=== PATIENT | female | born 1970 | race Caucasian/White ===

== ENCOUNTER 2021-04-17 01:59 | Emergency (ER) | payer OTHER ==
[~2021-04-17] VITALS: Ht 162.6 cm; Wt 108.9 kg
[2021-04-17 02:57] LABS: BASOPHILS ABSOLUTE AUTO 0.06 K/mm3 (0.00-0.23); BASOPHILS PERCENT AUTO 0 % (0-2); EOSINOPHILS ABSOLUTE AUTO 0.05 K/mm3 (0.00-0.68); EOSINOPHILS PERCENT AUTO 0 % (0-6); Hematocrit 46.8 % (33.0-51.0); Hemoglobin 15.6 g/dL (11.5-16.0); IMMATURE GRAN ABSOLUTE AUTO 0.08 K/mm3 (0.00-0.10); IMMATURE GRAN PERCENT AUTO 0 % (0-1); LYMPHOCYTES ABSOLUTE AUTO 2.03 K/mm3 (0.84-5.20); LYMPHOCYTES PERCENT AUTO 11 % (21-46); MONOCYTES ABSOLUTE AUTO 1.71 K/mm3 (0.16-1.47); MONOCYTES PERCENT AUTO 9 % (4-13); Mean Corpuscular HGB 28.2 pg (26.0-34.0); Mean Corpuscular HGB Conc 33.3 g/dL (31.5-36.5); Mean Corpuscular Volume 85 fL (80-100); Mean Platelet Volume 10.5 fL (9.1-12.4); NEUTROPHILS ABSOLUTE AUTO 15.04 K/mm3 (1.96-9.15); NEUTROPHILS PERCENT AUTO 79 % (41-73); Platelet Count 292 K/mm3 (150-400); RDW Coefficient Variation 13.8 % (11.7-14.2); Red Blood Cell Count 5.53 M/mm3 (3.80-5.20); White Blood Cell Count 18.97 K/mm3 (4.00-11.30)
[2021-04-17 03:18] LABS: Alanine Aminotransfer (ALT/SGP 29 U/L (12-78); Albumin, Blood 3.7 g/dL (3.4-5.0); Alk Phos 140 U/L (50-136); Anion Gap 9 mmol/L (6-16); Aspartate Aminotrans (AST/SGOT 18 U/L (12-37); Bilirubin, Total 2.4 mg/dL (0.1-1.0); Blood Urea Nitrogen 13 mg/dL (8-24); Bun/Creatinine Ratio 18.2 (12.0-20.0); CO2, Blood 27 mmol/L (21-32); Calcium, Blood 9.3 mg/dL (8.5-10.1); Chloride, Blood 102 mmol/L (98-108); Creatinine, Blood 0.71 mg/dL (0.40-1.00); Globulin, Blood 3.8 g/dL (2.2-4.0); Glomerular Filtration Rate >60 (60-); Glucose, Blood 133 mg/dL (70-99); Potassium, Blood 3.7 mmol/L (3.5-5.5); Sodium, Blood 138 mmol/L (136-145); Total Protein, Blood 7.5 g/dL (6.4-8.2); Troponin I 0.017 ng/mL (0.000-0.040)
[2021-04-17] MEDS ORDERED: AMLO10 PO (04:00)
[2021-04-17] MEDS ORDERED: Metrogel 1% 6060 GM (04:00)
[2021-04-17] MEDS ORDERED: Carvedilol12.5 MG (04:00)
[2021-04-17] MEDS ORDERED: ATOR80 PO (04:01)
[2021-04-17] MEDS ORDERED: EZET10 PO (04:01)
[2021-04-17] MEDS ORDERED: ISODIN20 PO (04:01)
[2021-04-17] MEDS ORDERED: Aspir 8181 MG PO (04:02)
[2021-04-17] MEDS ORDERED: NITROGLYCERIN0.4 M2 SL (04:02)
[2021-04-17 04:49] LABS: Source, Urine Clean Catch
[2021-04-17 04:54] LABS: Bilirubin, Urine Neg (Neg); Blood, Urine 4+ (Neg); Glucose Qualitative, Urine Neg (Neg); Ketones, Urine 1+ (Neg); Leukocyte Esterase, Urine 3+ (Neg); Nitrite, Urine Pos (Neg); Protein, Urine 2+ (Neg); Urobilinogen, Urine NORM (Normal); pH, Urine 6.5 (5.0-8.0)
[2021-04-17 05:05] LABS: Appearance, Urine Cloudy (Clear); Bacteria Many /hpf; Color, Urine Yellow (P-Yellow); Red Blood Cells, Urine 0-2 /hpf (0-2); Squamous Epithelial Cells Not Seen /hpf (Few); Transitional Epithelial Cells Few /hpf (0-Rare); White Blood Cells, Urine TNTC /hpf (0-5)
== END 2021-04-17 07:16 | disposition short-term general hospital (02) ==
LOC: ER 01:59
PROVIDERS: Emergency Medicine
DX: A41.9 Sepsis, unspecified organism (principal); N13.2 Hydronephrosis with renal and ureteral calculous obstruction; K80.20 Calculus of gallbladder without cholecystitis without obstruction; R68.84 Jaw pain; Z20.822 Contact with and (suspected) exposure to COVID-19; Z87.442 Personal history of urinary calculi
CPT/HCPCS: 36415; 71045; 76705; 76857; 80053; 81001; 84484; 85025; 87077; 87086; 87186; 93005; 93010; 96374; 96375; 99285-25; A9270; J0696; J1885; J2405; J7030

== ENCOUNTER 2021-04-17 16:56 | Inpatient (IN) | payer OTHER ==
[~2021-04-17] VITALS: Ht 162.6 cm; Wt 106.6 kg
[~2021-04-17 16:56] MED LIST: AMLO10 PO; ATOR80 PO; Aspir 8181 MG PO; Carvedilol12.5 MG; EZET10 PO; ISODIN20 PO; Metrogel 1% 6060 GM; NITROGLYCERIN0.4 M2 SL
[2021-04-17 17:46] LABS: Source, Urine Foley catheter
[2021-04-17 17:50] LABS: Appearance, Urine Hazy (Clear); Bilirubin, Urine Neg (Neg); Blood, Urine 5+ (Neg); Color, Urine Yellow (P-Yellow); Glucose Qualitative, Urine Neg (Neg); Ketones, Urine 2+ (Neg); Leukocyte Esterase, Urine 3+ (Neg); Nitrite, Urine Neg (Neg); Protein, Urine 2+ (Neg); Urobilinogen, Urine NORM (Normal)
[2021-04-17 17:55] LABS: BASOPHILS ABSOLUTE AUTO 0.05 K/mm3 (0.00-0.23); BASOPHILS PERCENT AUTO 0 % (0-2); EOSINOPHILS PERCENT AUTO 0 % (0-6); Hematocrit 41.9 % (33.0-51.0); Hemoglobin 14.4 g/dL (11.5-16.0); IMMATURE GRAN ABSOLUTE AUTO 0.08 K/mm3 (0.00-0.10); IMMATURE GRAN PERCENT AUTO 0 % (0-1); LYMPHOCYTES ABSOLUTE AUTO 0.61 K/mm3 (0.84-5.20); LYMPHOCYTES PERCENT AUTO 3 % (21-46); MONOCYTES ABSOLUTE AUTO 0.51 K/mm3 (0.16-1.47); MONOCYTES PERCENT AUTO 2 % (4-13); Mean Corpuscular HGB 28.9 pg (26.0-34.0); Mean Corpuscular HGB Conc 34.4 g/dL (31.5-36.5); Mean Corpuscular Volume 84 fL (80-100); Mean Platelet Volume 10.5 fL (9.1-12.4); NEUTROPHILS ABSOLUTE AUTO 22.22 K/mm3 (1.96-9.15); NEUTROPHILS PERCENT AUTO 95 % (41-73); Platelet Count 265 K/mm3 (150-400); RDW Coefficient Variation 14.3 % (11.7-14.2); RDW Standard Deviation 43.5 fL (35.1-46.3); Red Blood Cell Count 4.98 M/mm3 (3.80-5.20); White Blood Cell Count 23.47 K/mm3 (4.00-11.30)
[2021-04-17 18:00] LABS: Amorphous Light (0-Heavy); Bacteria Few /hpf; Mucus Mod (0-Heavy); Red Blood Cells, Urine 50-100 /hpf (0-2); Squamous Epithelial Cells Few /hpf (Few)
[2021-04-17 18:09] LABS: Alanine Aminotransfer (ALT/SGP 20 U/L (12-78); Albumin, Blood 3.1 g/dL (3.4-5.0); Albumin/Globulin Ratio 0.8 (0.8-1.8); Alk Phos 115 U/L (50-136); Anion Gap 10 mmol/L (6-16); Aspartate Aminotrans (AST/SGOT 16 U/L (12-37); Bilirubin, Total 1.5 mg/dL (0.1-1.0); Blood Urea Nitrogen 15 mg/dL (8-24); Bun/Creatinine Ratio 18.8 (12.0-20.0); CO2, Blood 24 mmol/L (21-32); Calcium, Blood 8.5 mg/dL (8.5-10.1); Chloride, Blood 103 mmol/L (98-108); Globulin, Blood 3.7 g/dL (2.2-4.0); Glomerular Filtration Rate >60 (60-); Glucose, Blood 162 mg/dL (70-99); Potassium, Blood 3.3 mmol/L (3.5-5.5); Sodium, Blood 137 mmol/L (136-145); Total Protein, Blood 6.8 g/dL (6.4-8.2)
[2021-04-18 04:39] LABS: Hematocrit 40.5 % (33.0-51.0); Hemoglobin 13.2 g/dL (11.5-16.0); Mean Corpuscular HGB 28.5 pg (26.0-34.0); Mean Corpuscular HGB Conc 32.6 g/dL (31.5-36.5); Mean Corpuscular Volume 88 fL (80-100); Platelet Count 254 K/mm3 (150-400); RDW Coefficient Variation 14.4 % (11.7-14.2); RDW Standard Deviation 46.2 fL (35.1-46.3); Red Blood Cell Count 4.63 M/mm3 (3.80-5.20); White Blood Cell Count 21.82 K/mm3 (4.00-11.30)
[2021-04-18 05:14] LABS: Anion Gap 9 mmol/L (6-16); Blood Urea Nitrogen 23 mg/dL (8-24); Bun/Creatinine Ratio 33.1 (12.0-20.0); CO2, Blood 26 mmol/L (21-32); Calcium, Blood 8.8 mg/dL (8.5-10.1); Chloride, Blood 106 mmol/L (98-108); Glomerular Filtration Rate >60 (60-); Glucose, Blood 126 mg/dL (70-99); Magnesium, Blood 2.7 mg/dL (1.6-2.4); Potassium, Blood 4.2 mmol/L (3.5-5.5); Sodium, Blood 141 mmol/L (136-145)
--- NOTE | 2021-04-18 05:44 | NUR ---
SHIFT SUMMARY: KYLE IS A&OX4. VSS, NO ACUTE EVENTS OVERNIGHT. SINGH DRAINING CLOUDY, ANSHU URINE. SHE DENIES ANY PAIN, USES THE CALL LIGHT APPROPRIATELY, AND IS INDEPENDENT IN THE ROOM. IV TO LEFT FOREARM PATENT, FLUIDS INFUSING. SHE IS TOLERATING PO INTAKE WELL, ABLE TO TURN AND REPOSITION HERSELF INDEPENDENTLY. SHE IS LYING IN BED WITH THE CALL LIGHT IN REACH. WILL REPORT TO DAY SHIFT RN.
--- NOTE | 2021-04-18 17:48 | NUR ---
SUMMARY PT IS A&O X4, PAIN FREE AND PLEASANT. SHE IS INDEPENDENT IN THE ROOM. PT IS TOLERATING PO INTAKE. SINGH CATHETER REMOVED @1715, 700 ML'S OF LIGHT ANSHU URINE NOTED IN BAG. PT'S STENT REMAINS IN PLACE. PT EDUCATED AND ADVISED TO BE CAREFUL WITH [facility] SO SHE DOES NOT ACCIDENTLY PULL STENT. PT STATES UNDERSTANDING. NO ACUTE CHANGES NOTED THROUGH THE DAY. PT IS RESTING QUIETLY, CALL LIGHT IN REACH.
--- NOTE | 2021-04-19 07:55 | NUR ---
summary no stones strained tonight. no c/o pain. tolerataing po fluids. hopin gfor possible dischaarge today.
[2021-04-19] MEDS ORDERED: CEFD300 PO (10:23)
--- NOTE | 2021-04-19 10:38 | NUR ---
DISCHARGE: DISCHARGE INSTUCTIONS GIVEN TO PATIENT AT THIS TIME. PATIENT VERBALIZED UNDERSTANDING. IV REMOVED WITH NO ISSUES. [facility] WITH CONFORMATION OF RECIEPT RECIEVED. NO SIGNS OR SYMPTOMS ACUTE DISTRESS NOTED. PATIENT LEFT VIA PRIVATE VEHICLE.
--- NOTE | 2021-04-19 12:34 | NUR ---
Per chart review with Dr. Sharma, patient appropriate for discharge. Patient to discharge home, denies barriers to discharge and feels safe to return home. No needs anticipated, patient to follow-up with Urology at [facility] in [place] for definitive stone removal. Hospital follow up scheduled with Dr. Smith on , April 22, 2021 at 10:40 AM in office. Patient agreeable with time and date. Patient states she has the follow with [facility] scheduled for 05/13/2021.
== END 2021-04-19 10:45 | disposition home or self-care (01) | DRG 872 ==
LOC: ER 16:56 → SURS 19:31
PROVIDERS: Nurse Practitioner Acute Care; Student in an Organized Health Care Education/Training Program; ADMIT Internal Medicine
DX: A41.51 Sepsis due to Escherichia coli [E. coli] (principal); N13.6 Pyonephrosis; R07.9 Chest pain, unspecified; N20.0 Calculus of kidney; I10 Essential (primary) hypertension; E78.5 Hyperlipidemia, unspecified; I25.10 Atherosclerotic heart disease of native coronary artery without angina pectoris; Z96.0 Presence of urogenital implants; I25.2 Old myocardial infarction; K76.0 Fatty (change of) liver, not elsewhere classified; Z95.5 Presence of coronary angioplasty implant and graft; Z79.899 Other long term (current) drug therapy; Z79.82 Long term (current) use of aspirin; Z28.21 Immunization not carried out because of patient refusal
CPT/HCPCS: 36415; 80048; 80053; 81001; 83605; 83735; 85025; 85027; 87040; 87086; 99285; A9270; J0696; J1650; J7030

== ENCOUNTER → 2021-04-22 | Outpatient (CLI) | payer OTHER ==
[~2021-04-22] MED LIST changes: +CEFD300 PO
== END | disposition home or self-care (01) ==
LOC: LAB 14:25 → LAB SHORT 14:25
DX: N39.0 Urinary tract infection, site not specified (principal)
CPT/HCPCS: 87077; 87086; 87186

== ENCOUNTER 2022-11-13 16:22 | Emergency (ER) | payer MEDICARE, OTHER ==
[~2022-11-13] VITALS: Ht 162.6 cm; Wt 109.8 kg
[2022-11-13 16:36] VITALS: BP 166/115
[2022-11-13 17:25] LABS: Source, Urine Clean Catch
[2022-11-13 17:29] LABS: Appearance, Urine Hazy (Clear); Bilirubin, Urine Neg (Neg); Blood, Urine 1+ (Neg); Color, Urine Yellow (P-Yellow); Glucose Qualitative, Urine 4+ (Neg); Ketones, Urine Neg (Neg); Leukocyte Esterase, Urine 2+ (Neg); Nitrite, Urine Neg (Neg); Protein, Urine Neg (Neg); Specific Gravity, Urine 1.025 (1.003-1.022); Urobilinogen, Urine NORM (Normal)
[2022-11-13 17:32] LABS: BASOPHILS ABSOLUTE AUTO 0.03 K/mm3 (0.00-0.23); BASOPHILS PERCENT AUTO 0 % (0-2); EOSINOPHILS ABSOLUTE AUTO 0.28 K/mm3 (0.00-0.68); EOSINOPHILS PERCENT AUTO 3 % (0-6); Hematocrit 46.2 % (33.0-51.0); Hemoglobin 15.2 g/dL (11.5-16.0); IMMATURE GRAN ABSOLUTE AUTO 0.01 K/mm3 (0.00-0.10); IMMATURE GRAN PERCENT AUTO 0 % (0-1); LYMPHOCYTES ABSOLUTE AUTO 2.52 K/mm3 (0.84-5.20); LYMPHOCYTES PERCENT AUTO 31 % (21-46); MONOCYTES ABSOLUTE AUTO 0.56 K/mm3 (0.16-1.47); MONOCYTES PERCENT AUTO 7 % (4-13); Mean Corpuscular HGB 28.7 pg (26.0-34.0); Mean Corpuscular HGB Conc 32.9 g/dL (31.5-36.5); Mean Corpuscular Volume 87 fL (80-100); Mean Platelet Volume 10.8 fL (9.1-12.4); NEUTROPHILS ABSOLUTE AUTO 4.87 K/mm3 (1.96-9.15); NEUTROPHILS PERCENT AUTO 59 % (41-73); Platelet Count 257 K/mm3 (150-400); RDW Coefficient Variation 14.1 % (11.7-14.2); RDW Standard Deviation 45.1 fL (35.1-46.3); Red Blood Cell Count 5.29 M/mm3 (3.80-5.20); White Blood Cell Count 8.27 K/mm3 (4.00-11.30)
[2022-11-13 17:40] LABS: Bacteria Mod /hpf; Red Blood Cells, Urine 0-2 /hpf (0-2); Squamous Epithelial Cells Mod /hpf (Few)
[2022-11-13 17:49] LABS: Albumin, Blood 3.9 g/dL (3.4-5.0); Albumin/Globulin Ratio 1.1 (0.8-1.8); Bilirubin, Total 1.1 mg/dL (0.1-1.0); Calcium, Blood 9.6 mg/dL (8.5-10.1); Creatinine, Blood 0.73 mg/dL (0.40-1.00); Globulin, Blood 3.5 g/dL (2.2-4.0); Potassium, Blood 3.9 mmol/L (3.5-5.5); Total Protein, Blood 7.4 g/dL (6.4-8.2)
== END 2022-11-13 20:57 | disposition home or self-care (01) ==
LOC: ER 16:22
PROVIDERS: Student in an Organized Health Care Education/Training Program
DX: R10.9 Unspecified abdominal pain (principal); Z79.899 Other long term (current) drug therapy; Z79.82 Long term (current) use of aspirin; I25.2 Old myocardial infarction
CPT/HCPCS: 74177; 80053; 81001; 83690; 85025; 87086; 93005; 93010; 99284-25; Q9967

== ENCOUNTER 2023-05-19 14:46 | Inpatient (IN) | payer MEDICARE, OTHER ==
[~2023-05-19] VITALS: Ht 162.6 cm; Wt 91.5 kg
[~2023-05-19 14:46] MED LIST changes: -AMLO10 PO; -ATOR80 PO; +Amlodipine Bes2.5 MG PO; +CARV6.25 PO; -Carvedilol12.5 MG; +LIPITOR80 MG PO
[2023-05-19 15:24] LABS: BASOPHILS ABSOLUTE AUTO 0.04 K/mm3 (0.00-0.23); BASOPHILS PERCENT AUTO 0 % (0-2); EOSINOPHILS PERCENT AUTO 4 % (0-6); Hematocrit 42.6 % (33.0-51.0); Hemoglobin 13.7 g/dL (11.5-16.0); IMMATURE GRAN ABSOLUTE AUTO 0.03 K/mm3 (0.00-0.10); IMMATURE GRAN PERCENT AUTO 0 % (0-1); LYMPHOCYTES ABSOLUTE AUTO 2.76 K/mm3 (0.84-5.20); LYMPHOCYTES PERCENT AUTO 28 % (21-46); MONOCYTES ABSOLUTE AUTO 0.77 K/mm3 (0.16-1.47); MONOCYTES PERCENT AUTO 8 % (4-13); Mean Corpuscular HGB 28.1 pg (26.0-34.0); Mean Corpuscular HGB Conc 32.2 g/dL (31.5-36.5); Mean Corpuscular Volume 88 fL (80-100); Mean Platelet Volume 10.4 fL (9.1-12.4); NEUTROPHILS ABSOLUTE AUTO 5.99 K/mm3 (1.96-9.15); NEUTROPHILS PERCENT AUTO 60 % (41-73); Platelet Count 262 K/mm3 (150-400); RDW Coefficient Variation 14.5 % (11.7-14.2); RDW Standard Deviation 46.1 fL (35.1-46.3); Red Blood Cell Count 4.87 M/mm3 (3.80-5.20); White Blood Cell Count 9.99 K/mm3 (4.00-11.30)
[2023-05-19 15:37] LABS: Albumin, Blood 3.3 g/dL (3.4-5.0); Bilirubin, Total 1.1 mg/dL (0.1-1.0); Calcium, Blood 8.8 mg/dL (8.5-10.1); Creatinine, Blood 0.76 mg/dL (0.40-1.00); Globulin, Blood 3.4 g/dL (2.2-4.0); Potassium, Blood 4.1 mmol/L (3.5-5.5); Total Protein, Blood 6.7 g/dL (6.4-8.2)
[2023-05-19] MEDS ORDERED: BENAZEPRIL HCL40 M1 PO (15:41)
[2023-05-19] MEDS ORDERED: METFORMIN HCL500 M3 PO (15:42)
[2023-05-19] MEDS ORDERED: PANTOPRAZOLE SO40 M2 PO (15:43)
[2023-05-19] MEDS ORDERED: RANO500T PO (15:43)
[2023-05-19] MEDS ORDERED: FAMO20 PO (15:43)
[2023-05-19] MEDS ORDERED: ASPI81CH PO (15:44)
[2023-05-19] MEDS ORDERED: PLAVIX75 MG PO (15:44)
[2023-05-19] MEDS ORDERED: FERSU300 PO (15:45)
[2023-05-19] MEDS ORDERED: Acetaminophen 325 MG TABLET PO PRN (19:55)
[2023-05-19] MEDS ORDERED: Naloxone HCl 0.4MG / ML 1ML Vial IV PRN (20:00)
[2023-05-19] MEDS ORDERED: Nitroglycerin 0.4 MG SUBL SL PRN (20:00)
[2023-05-19] MEDS ORDERED: Ondansetron HCl 2 MG / ML 2ML Vial IV PRN (20:00)
[2023-05-19] MEDS ORDERED: FLU VACC QS2023-24(6MOS UP)/PF 60 MCG/0.5 ML SYRINGE IM SCH (20:00)
[2023-05-19] MEDS ORDERED: Morphine Sulfate 4 MG/1 ML Injection IV PRN (20:00)
[2023-05-19] MEDS ORDERED: Docusate Sodium 100 MG Cap PO SCH (21:00)
[2023-05-19 21:37] VITALS: BP 170/90
[2023-05-19] MEDS ORDERED: HydrALAZINE HCl 20 MG / ML 1ML Vial IV PRN (22:35)
[2023-05-19] MEDS ORDERED: Lisinopril 20 MG Tab PO SCH (23:00)
[2023-05-19] MEDS ORDERED: Carvedilol 6.25 MG Tab PO SCH (23:00)
[2023-05-20 03:02] VITALS: BP 150/78
--- NOTE | 2023-05-20 04:06 | NUR ---
Shift Summary Patient is a 52 year old female admitted due to compaints of what she calls gas pain in her chest and tingling in her right arm. 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 She stated that this does not feel the same as any of those times. She denies pain at this time. Denies nausea. Stated that she did take nitroglycerin several times today with no relief. She has an IV in her right forearm that is saline locked. It flushes without difficulty. She is on tele in a sinus rhythm in the 70's. Respirations are regular and unlabored on room air. Patient is independently ambulatory and steady on her feet. She is alert and oriented x 4. Bed is in low postion with call light in reach.
[2023-05-20 04:57] LABS: BASOPHILS ABSOLUTE AUTO 0.03 K/mm3 (0.00-0.23); BASOPHILS PERCENT AUTO 0 % (0-2); EOSINOPHILS ABSOLUTE AUTO 0.38 K/mm3 (0.00-0.68); EOSINOPHILS PERCENT AUTO 4 % (0-6); Hematocrit 41.5 % (33.0-51.0); Hemoglobin 13.6 g/dL (11.5-16.0); IMMATURE GRAN ABSOLUTE AUTO 0.02 K/mm3 (0.00-0.10); IMMATURE GRAN PERCENT AUTO 0 % (0-1); LYMPHOCYTES ABSOLUTE AUTO 2.63 K/mm3 (0.84-5.20); LYMPHOCYTES PERCENT AUTO 28 % (21-46); MONOCYTES ABSOLUTE AUTO 0.81 K/mm3 (0.16-1.47); MONOCYTES PERCENT AUTO 9 % (4-13); Mean Corpuscular HGB 28.8 pg (26.0-34.0); Mean Corpuscular HGB Conc 32.8 g/dL (31.5-36.5); Mean Corpuscular Volume 88 fL (80-100); Mean Platelet Volume 10.7 fL (9.1-12.4); NEUTROPHILS ABSOLUTE AUTO 5.59 K/mm3 (1.96-9.15); NEUTROPHILS PERCENT AUTO 59 % (41-73); Platelet Count 255 K/mm3 (150-400); RDW Coefficient Variation 14.6 % (11.7-14.2); RDW Standard Deviation 46.7 fL (35.1-46.3); Red Blood Cell Count 4.72 M/mm3 (3.80-5.20); White Blood Cell Count 9.46 K/mm3 (4.00-11.30)
[2023-05-20 05:55] LABS: Alanine Aminotransfer (ALT/SGP 26 U/L (12-78); Albumin, Blood 3.3 g/dL (3.4-5.0); Albumin/Globulin Ratio 1.1 (0.8-1.8); Alk Phos 127 U/L (50-136); Anion Gap 3 mmol/L (6-16); Aspartate Aminotrans (AST/SGOT 16 U/L (12-37); Bilirubin, Total 1.6 mg/dL (0.1-1.0); Blood Urea Nitrogen 19 mg/dL (8-24); Bun/Creatinine Ratio 22.5 (12.0-20.0); CHOL/HDL RATIO 1.7; CO2, Blood 28 mmol/L (21-32); Chloride, Blood 110 mmol/L (98-108); Cholesterol 67 mg/dL (50-200); Creatinine, Blood 0.85 mg/dL (0.40-1.00); Glomerular Filtration Rate 81 (60-); Glucose, Blood 95 mg/dL (70-99); HDL Cholesterol 39 mg/dL (>39); LDL/HDL RATIO 0.4; Low Density Lipoprotein Chol 14 mg/dL (0-110); Magnesium, Blood 2.2 mg/dL (1.6-2.4); Potassium, Blood 3.8 mmol/L (3.5-5.5); Sodium, Blood 141 mmol/L (136-145); Thyroid Stimulating Hormone 0.833 uIU/mL (0.360-4.800); Total Protein, Blood 6.3 g/dL (6.4-8.2); Triglycerides 71 mg/dL (30-160); Very Low Density Lipoprot Chol 14 mg/dL (6-32)
[2023-05-20] MEDS ORDERED: Pantoprazole Sodium 40 MG Tab PO SCH (06:00)
[2023-05-20] MEDS ORDERED: Carvedilol 6.25 MG Tab PO SCH (08:00)
[2023-05-20 08:16] VITALS: BP 178/110
[2023-05-20] MEDS ORDERED: AmLODIPine Besylate 5 MG Tab PO SCH (09:00)
[2023-05-20] MEDS ORDERED: Aspirin 81 MG Chew PO SCH (09:00)
[2023-05-20] MEDS ORDERED: Isosorbide Dinitrate 20 MG TAB PO SCH (09:00)
[2023-05-20] MEDS ORDERED: Ranolazine 500 MG ER Tablet PO SCH (09:00)
[2023-05-20] MEDS ORDERED: Enoxaparin 40 MG/0.4 ML SYR SC SCH (09:00)
[2023-05-20] MEDS ORDERED: Ferrous Sulfate 325 MG Tab PO SCH (09:00)
[2023-05-20] MEDS ORDERED: Clopidogrel Bisulfate 75 MG Tab PO SCH (09:00)
[2023-05-20] MEDS ORDERED: Lisinopril 20 MG Tab PO SCH (09:00)
[2023-05-20 15:21] VITALS: BP 168/98
--- NOTE | 2023-05-20 15:53 | NUR ---
SUMMARY- PT A/O X4, INDEPENDANT IN ROOM. PT STATES SHE DOESN'T HAVE CHEST PAIN BUT DESCRIBES IT WAVES OF GAS PAIN/INDIGESTION. PT HAD FIRST PORTION OF CARDIAC STRESS TEST THIS AM, SECOND PART PLANNED 05/21 AM. PT'S BP'S REMAIN HIGH, EVEN AFTER AM BP MEDS. PT TOLERATING FOOD AND FLUIDS. ULTRASOUND OF ABD COMPLETE EARLIER IN RELATION TO ELEVATED BILIRUBIN, AWAITING RESULTS.
[2023-05-20 20:09] VITALS: BP 189/125
[2023-05-20] MEDS ORDERED: Ezetimibe 10 MG Tab PO SCH (21:00)
[2023-05-20] MEDS ORDERED: Atorvastatin 40 MG Tab PO SCH (21:00)
[2023-05-21 04:29] VITALS: BP 152/91
[2023-05-21 04:50] LABS: BASOPHILS ABSOLUTE AUTO 0.04 K/mm3 (0.00-0.23); BASOPHILS PERCENT AUTO 0 % (0-2); EOSINOPHILS PERCENT AUTO 4 % (0-6); Hematocrit 43.1 % (33.0-51.0); IMMATURE GRAN ABSOLUTE AUTO 0.03 K/mm3 (0.00-0.10); IMMATURE GRAN PERCENT AUTO 0 % (0-1); LYMPHOCYTES ABSOLUTE AUTO 2.17 K/mm3 (0.84-5.20); LYMPHOCYTES PERCENT AUTO 23 % (21-46); MONOCYTES ABSOLUTE AUTO 0.71 K/mm3 (0.16-1.47); MONOCYTES PERCENT AUTO 7 % (4-13); Mean Corpuscular HGB 28.2 pg (26.0-34.0); Mean Corpuscular HGB Conc 32.5 g/dL (31.5-36.5); Mean Corpuscular Volume 87 fL (80-100); Mean Platelet Volume 10.3 fL (9.1-12.4); NEUTROPHILS PERCENT AUTO 65 % (41-73); Platelet Count 251 K/mm3 (150-400); RDW Coefficient Variation 14.5 % (11.7-14.2); RDW Standard Deviation 46.4 fL (35.1-46.3); Red Blood Cell Count 4.97 M/mm3 (3.80-5.20); White Blood Cell Count 9.65 K/mm3 (4.00-11.30)
--- NOTE | 2023-05-21 05:13 | NUR ---
SHIFT SUMMARY PT INDEPENDANT IN ROOM. POSSIBLE DC AFTER STRESS TEST ON 05/21/2023 PER DAY SHIFT SHIFT REPORT. PT STATED SHE WOULD LIKE TO NOT RECEIVE STOOL SOFTENER ANYMORE. STATES SHE IS HAVING LOOSE STOOLS. PT SLEPT THROUGH NIGHT. PT PLEASANT AND COOPERATIVE WITH CARE.
[2023-05-21 05:17] LABS: Albumin, Blood 3.3 g/dL (3.4-5.0); Albumin/Globulin Ratio 1.1 (0.8-1.8); Bilirubin, Total 1.2 mg/dL (0.1-1.0); Bun/Creatinine Ratio 23.1 (12.0-20.0); Calcium, Blood 9.4 mg/dL (8.5-10.1); Creatinine, Blood 0.78 mg/dL (0.40-1.00); Globulin, Blood 3.1 g/dL (2.2-4.0); Potassium, Blood 3.7 mmol/L (3.5-5.5); Total Protein, Blood 6.4 g/dL (6.4-8.2)
[2023-05-21 07:35] VITALS: BP 204/126
[2023-05-21 07:43] VITALS: BP 174/94
[2023-05-21] MEDS ORDERED: Regadenoson 0.4 MG/5 ML SYRINGE ONE (07:54)
[2023-05-21] MEDS ORDERED: Caffeine Citrated 60 MG/3 ML Vial ONE (07:54)
[2023-05-21] MEDS ORDERED: Isosorbide Mononitrate 30 MG TABCR PO SCH (09:00)
[2023-05-21 15:45] VITALS: BP 200/108
[2023-05-21 17:46] VITALS: BP 190/106
--- NOTE | 2023-05-21 17:48 | NUR ---
SUMMARY- PT A/OX4, INDEPENDANT IN ROOM. HAD SECOND PART OF STRESS TEST COMPLETED AND RESLUTS OF NUC MED STUDY. AREA OF CONCERN, RECOMMENT CARD CONS. CALL TO DR ALCALA, CARDIO CONSULT ORDERED. CALL PLACED TO [facility] ANSWERING SERVICE. PT'S BLOOD PRESURES REMAIN HIGH. REPORTS INTERMITTENT UNSTABLE PRESURE INTO MID UPPER CHEST, HAS DESCRIBED LIKE GAS PAIN, TRAPPED AIR. TROPONINS REMAIN NEGATIVE. PT WILL STAY ANOTHER NIGHT FOR CARDIAC CONSULT. PT TOLERATING FOOD AND FLUIDS. WILL REPORT TO NOC RN
[2023-05-21] MEDS ORDERED: Mag Hydrox/AL Hydrox/Simeth 30 ML UDC PO PRN (18:10)
[2023-05-21] MEDS ORDERED: AmLODIPine Besylate 5 MG Tab PO SCH (18:10)
--- NOTE | 2023-05-21 18:10 | NUR ---
CALLED TO NOTIFY DR ALCALA OF SUSTAINED HIGH BLOOD PRESURE. PT DENIES CHEST PAIN CURRENTLY. INCREASED DOSE OF NORVASC AND ADDITIONAL ONE TIME DOSE NOW. 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
[2023-05-21 20:05] VITALS: BP 162/102
[2023-05-22] VITALS (12 sets, daily range): BP systolic 127–195; BP diastolic 80–116
--- NOTE | 2023-05-22 04:48 | NUR ---
SHIFT SUMMARY PT ALERT MOST OF NIGHT WITH SHORT EPISODES OF SLEEP. SHE IS INDEPENDANDT AND UP ADLIB IN ROOM. PT USES CALL LIGHT APPROPRIATELY. SHE WILL LIKELY BE GOING THROUGH PROCEDURE TODAY, TO DISCUSS FINDINGS FROM NUCLEATED STRESS TEST. 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
[2023-05-22 05:14] LABS: BASOPHILS ABSOLUTE AUTO 0.05 K/mm3 (0.00-0.23); BASOPHILS PERCENT AUTO 1 % (0-2); EOSINOPHILS ABSOLUTE AUTO 0.37 K/mm3 (0.00-0.68); EOSINOPHILS PERCENT AUTO 4 % (0-6); Hematocrit 46.9 % (33.0-51.0); Hemoglobin 15.5 g/dL (11.5-16.0); IMMATURE GRAN ABSOLUTE AUTO 0.02 K/mm3 (0.00-0.10); IMMATURE GRAN PERCENT AUTO 0 % (0-1); LYMPHOCYTES ABSOLUTE AUTO 2.28 K/mm3 (0.84-5.20); LYMPHOCYTES PERCENT AUTO 23 % (21-46); MONOCYTES ABSOLUTE AUTO 0.81 K/mm3 (0.16-1.47); MONOCYTES PERCENT AUTO 8 % (4-13); Mean Corpuscular HGB 28.8 pg (26.0-34.0); Mean Corpuscular Volume 87 fL (80-100); Mean Platelet Volume 10.9 fL (9.1-12.4); NEUTROPHILS ABSOLUTE AUTO 6.42 K/mm3 (1.96-9.15); NEUTROPHILS PERCENT AUTO 65 % (41-73); Platelet Count 257 K/mm3 (150-400); RDW Coefficient Variation 14.5 % (11.7-14.2); RDW Standard Deviation 46.1 fL (35.1-46.3); Red Blood Cell Count 5.39 M/mm3 (3.80-5.20); White Blood Cell Count 9.95 K/mm3 (4.00-11.30)
[2023-05-22 05:52] LABS: Albumin, Blood 3.7 g/dL (3.4-5.0); Albumin/Globulin Ratio 1.1 (0.8-1.8); Bilirubin, Total 1.4 mg/dL (0.1-1.0); Bun/Creatinine Ratio 24.1 (12.0-20.0); Calcium, Blood 9.6 mg/dL (8.5-10.1); Creatinine, Blood 0.79 mg/dL (0.40-1.00); Globulin, Blood 3.4 g/dL (2.2-4.0); Potassium, Blood 4.1 mmol/L (3.5-5.5); Total Protein, Blood 7.1 g/dL (6.4-8.2)
[2023-05-22] MEDS ORDERED: Heparin Sodium 1000 Units/ML 10ML MDV ONE ×2 (08:55→10:28)
[2023-05-22] MEDS ORDERED: NS 1,000 ML IV ONE ×2 (08:55→09:56)
[2023-05-22] MEDS ORDERED: NS 250 ML IV ONE (08:55)
[2023-05-22] MEDS ORDERED: NiCARdipine HCL 1,000 MCG/5 ML SYR ONE (08:56)
[2023-05-22] MEDS ORDERED: Nitroglycerin 2 MG/20 ML BTL ONE (08:56)
[2023-05-22] MEDS ORDERED: FentaNYL Citrate 50 MCG/ML 2 ML Injection ONE (09:55)
[2023-05-22] MEDS ORDERED: Midazolam HCl 1MG / ML 2ML Vial ONE (09:56)
[2023-05-22] MEDS ORDERED: Clopidogrel Bisulfate 300 MG Cap ONE (10:24)
--- NOTE | 2023-05-22 11:27 | NUR ---
TRANSFER NOTE- PT BP WAS MANUALLY CHECKED THIS MORNING. BP WAS ELEVATED. DR EUBANKS CAME TO SEE THE PT AND SPOKE TO HER ABOUT CARDIAC CATH, PT SIGNED THE CONSENT FORM. PER DR EUBANKS THE PT OK TO RECIEVE MORNING BP MEDS, PLAVIX AND ASPIRIN. PT RECIVED ALL OF THESE. LOVENOX WAS HELD PER DR EUBANKS. 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 NO S&S OF DISRESS NOTED AT THE TIME OF DISCHARGE.
--- NOTE | 2023-05-22 11:45 | NUR ---
ASSUMED CARE PT ARRIVED TO UNIT FROM [facility]. PT AWAKE AND ALERT. VS STABLE. HR NSR 60'S. RIGHT RADIAL SITE FREE FROM BLEEDING, BRUISING OR HEMATOMA. TR BAND IN PLACE WITH 9ML OF AIR INFLATED. ARM BOARD ON AND PT EDUCATED ON RIGHT ARM RESTRICTIONS. PT ORIENTED TO NEW ROOM AND UNIT. WILL CONTINUE TO MONITOR CLOSELY
--- NOTE | 2023-05-22 16:49 | NUR ---
SHIFT SUMMARY PT REMAINS ALERT AND ORIENTED. VS STABLE. PT REMAINS ON RA. PT DENIES ANY PAIN. RIGHT RADIAL SITE RECOVERED PER PROTOCOL WITH NO COMPLICATIONS. CLEAR DRESSING IN PLACE AND ARM BOARD. PT FOLLOWING RESTRICTIONS. WILL CONTINUE TO MONITOR AND REPORT TO ONCOMING RN
--- NOTE | 2023-05-22 21:51 | NUR ---
ASSUMPTION OF CARE AFTER RECEIVING REPORT FROM WING KELLER, THIS RN ASSUMED CARE AT APPROX 1915. PATIENT ALERT, SITTING IN CHAIR PLAYING CARD GAME WITH VISITOR DURING INITIAL ENCOUNTER. IS ALERT AND ORIENTED X4. IS INDEPENDENT IN ROOM, WITH ALL ADLs. COMMUNICATES NEEDS EFFECTIVELY NEEDED. TELEMETRY SHOWING [place] 50s. BP STABLE, SBP 120s. DENIES CHEST PAIN, PRESSURE. S/P ANGIOGRAM TODAY. R RADIAL SITE WNL. SOFT, NONTENDER. NO HEMATOMA NOTED. TEGADERM DRESSING C/D/I. ARMBOARD IN PLACE. IS ON ROOM AIR, SATs >90%. RESPIRATIONS EVEN, UNLABORED. DENIES SHORTNESS OF BREATH. CALL LIGHT IN REACH.
[2023-05-23 04:16] VITALS: BP 165/89
[2023-05-23 04:40] LABS: BASOPHILS ABSOLUTE AUTO 0.04 K/mm3 (0.00-0.23); BASOPHILS PERCENT AUTO 0 % (0-2); EOSINOPHILS ABSOLUTE AUTO 0.34 K/mm3 (0.00-0.68); EOSINOPHILS PERCENT AUTO 3 % (0-6); Hematocrit 44.4 % (33.0-51.0); Hemoglobin 14.7 g/dL (11.5-16.0); IMMATURE GRAN ABSOLUTE AUTO 0.04 K/mm3 (0.00-0.10); IMMATURE GRAN PERCENT AUTO 0 % (0-1); LYMPHOCYTES ABSOLUTE AUTO 2.07 K/mm3 (0.84-5.20); LYMPHOCYTES PERCENT AUTO 19 % (21-46); MONOCYTES ABSOLUTE AUTO 0.87 K/mm3 (0.16-1.47); MONOCYTES PERCENT AUTO 8 % (4-13); Mean Corpuscular HGB 28.9 pg (26.0-34.0); Mean Corpuscular HGB Conc 33.1 g/dL (31.5-36.5); Mean Corpuscular Volume 87 fL (80-100); Mean Platelet Volume 10.7 fL (9.1-12.4); NEUTROPHILS ABSOLUTE AUTO 7.76 K/mm3 (1.96-9.15); NEUTROPHILS PERCENT AUTO 70 % (41-73); Platelet Count 265 K/mm3 (150-400); RDW Coefficient Variation 14.6 % (11.7-14.2); RDW Standard Deviation 46.6 fL (35.1-46.3); Red Blood Cell Count 5.09 M/mm3 (3.80-5.20); White Blood Cell Count 11.12 K/mm3 (4.00-11.30)
--- NOTE | 2023-05-23 04:58 | NUR ---
SHIFT SUMMARY NO ACUTE CHANGES SINCE ASSUMPTION OF CARE NOTE. PATIENT SLEPT THROUGHOUT SHIFT, EASILY AROUSABLE TO VERBAL STIMULI. REMAINS INDEPENDENT IN ROOM, WITH ALL ADLs. TELEMETRY SHOWING CURRENTLY SHOWING SINUS 70s. IS [place] 50s-60s WHILE SLEEPING. BP STABLE, SBP 120s-160s. DENIES CHEST PAIN, PRESSURE. R RADIAL SITE REMAINS WNL. SOFT, NONTENDER, NO HEMATOMA NOTED. TEGADERM DRESSING IS C/D/I. ARMBOARD IN PLACE. REMAINS ON ROOM AIR, SATs >90%. RESPIRATIONS EVEN, UNLABORED. DENIES SHORTNESS OF BREATH. VOIDING. NO BM THIS SHIFT. CALL LIGHT IN REACH. WILL REPORT TO ONCOMING RN.
[2023-05-23 05:11] LABS: Albumin, Blood 3.5 g/dL (3.4-5.0); Albumin/Globulin Ratio 1.1 (0.8-1.8); Bilirubin, Total 1.9 mg/dL (0.1-1.0); Bun/Creatinine Ratio 25.6 (12.0-20.0); Calcium, Blood 9.7 mg/dL (8.5-10.1); Creatinine, Blood 0.86 mg/dL (0.40-1.00); Globulin, Blood 3.3 g/dL (2.2-4.0); Potassium, Blood 4.1 mmol/L (3.5-5.5); Total Protein, Blood 6.8 g/dL (6.4-8.2)
[2023-05-23 08:05] VITALS: BP 138/99
[2023-05-23] MEDS ORDERED: Aspir 8181 MG PO (09:33)
[2023-05-23 09:58] VITALS: BP 156/102
[2023-05-23 10:04] VITALS: BP 138/103
--- NOTE | 2023-05-23 11:09 | NUR ---
DISCHARGE SUMMARY Pt alert, oriented x4; calm and cooperative with care. Pt resting in bed, up ind in room. Able to make needs known. Pt denies pain, chest pain/pressure, sob, nausea, dizziness and numb/tingling. Tele sinus 60's, bp elevated. Trace edema note to ble. Spo2>90% on ra, breathing even and unlabored, ls clear. Abd soft nontender +bt t/o. Other vss. No other acute changes noted. Educated pt and son in law on discharge instructions, follow up appointments, post angio care and medications. Pt knows to switch to enteric coated baby aspirin and hold off on metformin for 3 days. Pt left via wheelchair at approx 1015.
== END 2023-05-23 10:16 | disposition home or self-care (01) | DRG 322 ==
LOC: ER 14:46 → MEDS 14:47 → PCU 05-21 15:26 → MEDS 05-21 17:06 → PCU 05-22 09:55
PROVIDERS: Emergency Medicine; Family Medicine; ADMIT Student in an Organized Health Care Education/Training Program
PROC: 027034Z Dilation of Coronary Artery, One Artery with Drug-eluting Intraluminal Device, Percutaneous Approach (ICD-10-PCS; principal; 2023-05-22)
PROC: B2111ZZ Fluoroscopy of Multiple Coronary Arteries using Low Osmolar Contrast (ICD-10-PCS; 2023-05-22)
DX: I25.10 Atherosclerotic heart disease of native coronary artery without angina pectoris (principal); I24.9 Acute ischemic heart disease, unspecified; Z68.41 Body mass index [BMI] 40.0-44.9, adult; T82.855A Stenosis of coronary artery stent, initial encounter; E78.5 Hyperlipidemia, unspecified; I10 Essential (primary) hypertension; E66.9 Obesity, unspecified; E80.6 Other disorders of bilirubin metabolism; R73.03 Prediabetes; I25.82 Chronic total occlusion of coronary artery; Z85.43 Personal history of malignant neoplasm of ovary; I25.2 Old myocardial infarction; Z79.82 Long term (current) use of aspirin; Z95.5 Presence of coronary angioplasty implant and graft; Z79.02 Long term (current) use of antithrombotics/antiplatelets; Z79.84 Long term (current) use of oral hypoglycemic drugs
CPT/HCPCS: 36415; 71045; 76705; 76937; 78452; 80053; 80061; 83036; 83735; 84443; 84484; 85025; 85347; 93005; 93010; 93017; 93454; 94762; 99152; 99153; 99285-25; A9270; A9500; C1725; C1769; C1874; C1887; C1894; C9600; G0378; J0706; J1644; J2250; J2785; J3010; J7030; J7050; Q9967

== ENCOUNTER 2023-07-28 06:12 | Day surgery (SDC) | payer MEDICARE, OTHER ==
[~2023-07-28] VITALS: Ht 162.6 cm; Wt 110.1 kg
[~2023-07-28 06:12] MED LIST changes: +ASPI81CH PO; +BENAZEPRIL HCL40 M1 PO; +FAMO20 PO; +FERSU300 PO; +METFORMIN HCL500 M3 PO; +PANTOPRAZOLE SO40 M2 PO; +PLAVIX75 MG PO; +RANO500T PO
[2023-07-28] MEDS ORDERED: REPATHA SU140 MG/1 M (06:27)
[2023-07-28] MEDS ORDERED: Lactated Ringer's 1,000 ML IV ONE ×2 (07:15→07:50)
[2023-07-28] MEDS ORDERED: FentaNYL Citrate 50 MCG/ML 2 ML Injection ONE (07:54)
[2023-07-28] MEDS ORDERED: propofoL 50 ML IV ONE (07:54)
[2023-07-28] MEDS ORDERED: Midazolam HCL 1 MG/ML 5MLVIAL ONE (07:54)
[2023-07-28 08:37] VITALS: BP 133/76
== END 2023-07-28 08:35 | disposition home or self-care (01) ==
LOC: ORSCSDS 06:12
PROVIDERS: Internal Medicine Gastroenterology
PROC: 0DJ08ZZ Inspection of Upper Intestinal Tract, Via Natural or Artificial Opening Endoscopic (ICD-10-PCS; principal; 2023-07-28 07:30)
DX: Z01.818 Encounter for other preprocedural examination (principal); K44.9 Diaphragmatic hernia without obstruction or gangrene; I25.2 Old myocardial infarction; E11.9 Type 2 diabetes mellitus without complications; E78.5 Hyperlipidemia, unspecified; I10 Essential (primary) hypertension; K76.0 Fatty (change of) liver, not elsewhere classified; Z87.891 Personal history of nicotine dependence; E66.9 Obesity, unspecified; Z68.41 Body mass index [BMI] 40.0-44.9, adult; Z79.82 Long term (current) use of aspirin; Z79.84 Long term (current) use of oral hypoglycemic drugs; Z79.02 Long term (current) use of antithrombotics/antiplatelets; Z79.899 Other long term (current) drug therapy
CPT/HCPCS: 82947; J2250; J2704; J3010; J7120

== ENCOUNTER → 2023-08-30 | Outpatient (CLI) | payer MEDICARE, OTHER ==
[~2023-08-30] MED LIST changes: +REPATHA SU140 MG/1 M
== END ==
LOC: LAB EV 08:23 → LAB FUT 08-09 12:20
DX: Z01.89 Encounter for other specified special examinations (principal); Z68.41 Body mass index [BMI] 40.0-44.9, adult
CPT/HCPCS: 87338

== ENCOUNTER 2024-06-05 11:04 | Emergency (ER) | payer MEDICARE, OTHER ==
[~2024-06-05] VITALS: Ht 162.6 cm; Wt 89.4 kg
[2024-06-05] MEDS ORDERED: Oxymetazoline 0.05% Nasal Relief Spray 15mL BTL ONE (11:25)
[2024-06-05] MEDS ORDERED: Tranexamic Acid 1000 MG/10 ML 10ML Vial (SDV) ONE (12:15)
[2024-06-05] MEDS ORDERED: AMOCLA875 PO (21:25)
== END 2024-06-05 13:42 | disposition home or self-care (01) ==
LOC: ER 11:04
DX: R04.0 Epistaxis (principal); R68.84 Jaw pain; I10 Essential (primary) hypertension; I25.10 Atherosclerotic heart disease of native coronary artery without angina pectoris; E78.5 Hyperlipidemia, unspecified; Z79.01 Long term (current) use of anticoagulants; Z79.82 Long term (current) use of aspirin; Z79.84 Long term (current) use of oral hypoglycemic drugs; Z79.899 Other long term (current) drug therapy; Z95.5 Presence of coronary angioplasty implant and graft
CPT/HCPCS: 30903; 80048; 84484; 85025; 93005; 93010; 99283-25; A9270

== ENCOUNTER 2024-06-05 16:40 | Emergency (ER) | payer MEDICARE, OTHER ==
[~2024-06-05] VITALS: Ht 162.6 cm; Wt 75.8 kg
[2024-06-05 17:32] LABS: BASOPHILS ABSOLUTE AUTO 0.04 K/mm3 (0.00-0.23); BASOPHILS PERCENT AUTO 0 % (0-2); EOSINOPHILS ABSOLUTE AUTO 0.35 K/mm3 (0.00-0.68); EOSINOPHILS PERCENT AUTO 3 % (0-6); Hematocrit 42.7 % (33.0-51.0); Hemoglobin 14.6 g/dL (11.5-16.0); IMMATURE GRAN ABSOLUTE AUTO 0.03 K/mm3 (0.00-0.10); IMMATURE GRAN PERCENT AUTO 0 % (0-1); LYMPHOCYTES ABSOLUTE AUTO 2.19 K/mm3 (0.84-5.20); LYMPHOCYTES PERCENT AUTO 21 % (21-46); MONOCYTES ABSOLUTE AUTO 0.65 K/mm3 (0.16-1.47); MONOCYTES PERCENT AUTO 6 % (4-13); Mean Corpuscular HGB 31.7 pg (26.0-34.0); Mean Corpuscular HGB Conc 34.2 g/dL (31.5-36.5); Mean Corpuscular Volume 93 fL (80-100); Mean Platelet Volume 10.7 fL (9.1-12.4); NEUTROPHILS ABSOLUTE AUTO 7.44 K/mm3 (1.96-9.15); NEUTROPHILS PERCENT AUTO 69 % (41-73); Platelet Count 252 K/mm3 (150-400); RDW Coefficient Variation 14.5 % (11.7-14.2); RDW Standard Deviation 49.8 fL (35.1-46.3); Red Blood Cell Count 4.61 M/mm3 (3.80-5.20)
[2024-06-05 18:09] LABS: Bun/Creatinine Ratio 37.3 (12.0-20.0); Creatinine, Blood 0.75 mg/dL (0.40-1.00); Potassium, Blood 3.6 mmol/L (3.5-5.5)
[2024-06-05 19:45] VITALS: BP 214/109
[2024-06-05] MEDS ORDERED: Acetaminophen 500 MG Tab PO ONE (20:30)
[2024-06-05] MEDS ORDERED: AMOCLA875 PO (21:25)
== END 2024-06-05 21:35 | disposition home or self-care (01) ==
LOC: ER 16:40
PROVIDERS: Emergency Medicine
DX: R04.0 Epistaxis (principal); R68.84 Jaw pain; I10 Essential (primary) hypertension; I25.10 Atherosclerotic heart disease of native coronary artery without angina pectoris; E78.5 Hyperlipidemia, unspecified; Z95.5 Presence of coronary angioplasty implant and graft; Z79.01 Long term (current) use of anticoagulants; Z79.82 Long term (current) use of aspirin; Z79.84 Long term (current) use of oral hypoglycemic drugs; Z79.899 Other long term (current) drug therapy
CPT/HCPCS: 80048; 84484; 85025; 93005; 93010; A9270